=== PATIENT | female | born 1970 | race Caucasian/White ===

== ENCOUNTER 2019-12-04 16:08 | Emergency (ER) | payer OTHER ==
[~2019-12-04] VITALS: Ht 165.1 cm; Wt 81.7 kg
[2019-12-04] MEDS ORDERED: Ritalin10 MG PO (19:15)
[2019-12-04] MEDS ORDERED: BUPRENORPHINE HC8 MG SL (19:15)
[2019-12-04] MEDS ORDERED: HYDHCL25 PO (19:32)
[2019-12-04] MEDS ORDERED: PRED10 PO (19:32)
== END 2019-12-04 19:38 | disposition home or self-care (01) ==
LOC: ER 16:08
DX: L30.1 Dyshidrosis [pompholyx] (principal)
CPT/HCPCS: 99282

== ENCOUNTER → 2020-02-13 | Outpatient (CLI) | payer OTHER ==
[~2020-02-13] MED LIST: BUPRENORPHINE HC8 MG SL; HYDHCL25 PO; PRED10 PO; Ritalin10 MG PO
== END | disposition home or self-care (01) ==
LOC: LAB 19:13 → LAB SHORT 19:13
DX: R21 Rash and other nonspecific skin eruption (principal)
CPT/HCPCS: 87529

== ENCOUNTER → 2020-07-22 | Outpatient (CLI) | payer OTHER | END | disposition home or self-care (01) | LOC: LAB 19:15 → LAB SHORT 19:15 | DX: M79.89 Other specified soft tissue disorders (principal) | CPT/HCPCS: 80053; 85025; 85651; 86140; 86200; 86225; 86235; 86431 ==